=== PATIENT | male | born 1985 | race Caucasian/White ===

== ENCOUNTER 2017-04-07 01:35 | Emergency (ER) | payer SELFPAY ==
[~2017-04-07] VITALS: Ht 175.3 cm; Wt 84.8 kg
[2017-04-07 01:42] VITALS: Ht 175.3 cm; Wt 84.8 kg
[2017-04-07] MEDS ORDERED: TETRACAINE 0.5% 4 ML OPH LEFT EYE SCH (02:30)
[2017-04-07] MEDS ORDERED: FLUORESCEIN STRIP LEFT EYE ONE (02:30)
[2017-04-07] MEDS ORDERED: VIGA LEFT EYE (03:09)
--- NOTE | 2017-04-07 03:09 | ERD ---
ER Documentation Chief Complaint Chief Complaint Lt eye pain today s/p metal in eye while at work HPI 31-year-old male presents here to emergency department for complaints of a foreign body sensation in the left eye, was cutting metal today at work, felt like a metal object went into the left eye. Patient's complaint of pain sharp pain 4/10 scale, accompanied with tearing. Patient denies any eye discharge. Unknown last tetanus immunization. ROS All systems reviewed and are negative except as per history of present illness. Medications Home Meds Reported Medications [none] Unknown Strength No Conflict Check 04/07/17 Allergies Allergies: Coded Allergies: No Known Allergy (Unverified , 04/07/17) PMhx/Soc Medical and Surgical Hx: pt denies Surgical Hx Hx Respiratory Disorders: Yes (Asthma) Hx Alcohol Use: No Hx Substance Use: No Hx Tobacco Use: Yes Smoking Status: Current every day smoker FmHx Family History: No coronary disease, No diabetes, No other Physical Exam Vitals Vital Signs Date Time Temp Pulse Resp B/P Pulse Ox O2 Delivery O2 Flow Rate FiO2 04/07/17 01:42 98.0 89 18 156/95 99 Physical Exam GENERAL: The patient is well developed and appropriate for usual state of health, in no apparent distress. CHEST: Clear to auscultation bilaterally. There are no rales, wheezes or rhonchi. HEART: Regular rate and rhythm. No murmurs, clicks, rubs or gallops. No S3 or S4. ABDOMEN: Soft, nontender and nondistended. Good bowel sounds. No rebound or guarding. No gross peritonitis. No gross organomegaly or masses. No Hughes sign or McBurney point tenderness. BACK: No midline or flank tenderness. EXTREMITIES: Equal pulses bilaterally. There is no peripheral clubbing, cyanosis or edema. No focal swelling or erythema. Full range of motion. Grossly neurovascularly intact. NEURO: Alert and oriented. Cranial nerves 2-12 intact. Motor strength in all 4 extremities with 5/5 strength. Sensation grossly intact. Normal speech and gait. SKIN: There is no apparent rash or petechia. The skin is warm and dry. HEMATOLOGIC AND LYMPHATIC: There is no evidence of excessive bruising or lymphedema. No gross cervical, axillary, or inguinal lymphadenopathy. Results 24 hrs Current Medications Medications (Trade) Dose Ordered Sig/Shaye Route PRN Reason Start Time Stop Time Status Last Admin Dose Admin Tetracaine HCl (Tetracaine 0.5% Steri-Unit Oksana) 1 drop ONCE LEFT EYE 04/07/17 02:30 Fluorescein Sodium (Yhrks-O-Nhbzo) 1 strip ONCE ONCE LEFT EYE 04/07/17 02:30 04/07/17 02:31 DC Procedures/MDM Procedure Note: After obtaining informed consent, the left eye was stained using fluorescein dye, noted metal foreign body in the cornea in the middle, use tetracaine ophthalmic solution to numb the cornea. After staining the eye, A Wood's lamp was used to evaluate the eye. No metal foreign body in the middle of the cornea which was removed using insulin syringe without any difficulty. Patient tolerated procedure well. Eyewash was used to clean afterwards. Medical decision making: Patient is a left eye foreign body, metal object, no rust ring noted. No other foreign body noted. No symptoms of acute bacterial infection, no symptoms of any Taylor sign, no global rupture, no symptoms of any other acute eye emergencies. Patient is given Vigamox ophthalmic solution, is advised to see ophthalmology doctor in the next 2-3 days for reevaluation. Patient was advised to return to emergency department for any worsening symptoms. Disposition: Home. Stable. Departure Diagnosis: Primary Impression: Corneal foreign body Encounter type: initial encounter Laterality: left Qualified Code: T15.02XA - Foreign body of left cornea, initial encounter Condition: Stable Patient Instructions: Corneal Foreign Body, Removed MINNIE RHODES NP Apr 07, 2017 03:09
[2017-04-07 03:30] VITALS: BP 161/89; PULSE 89; RESP 18; TEMP 98.3
[2017-04-07] MEDS ORDERED: DIPHTH/TET/ACEL PERTUSS (ADULT) 0.5 ML VIAL IM* ONE (03:30)
[2017-04-07] MEDS ORDERED: OPHTHALMIC IRRIG SOLUTION 120 ML LEFT EYE ONE (03:30)
== END 2017-04-07 03:48 | disposition home or self-care (01) ==
LOC: FTE 01:35
DX: T15.02XA Foreign body in cornea, left eye, initial encounter (principal); J45.909 Unspecified asthma, uncomplicated; F17.210 Nicotine dependence, cigarettes, uncomplicated; W26.8XXA Contact with other sharp object(s), not elsewhere classified, initial encounter; Y92.89 Other specified places as the place of occurrence of the external cause
CPT/HCPCS: 90471; 90715